=== PATIENT | male | born 1995 | race African-American/Black ===

== ENCOUNTER 2020-06-19 17:05 | Emergency (ER) | payer OTHER, SELFPAY ==
--- NOTE | 2020-06-19 | CT_ITS ---
EXAMINATION: CT ABDOMEN AND PELVIS WITH CONTRAST CLINICAL INFORMATION: Left upper quadrant pain. COMPARISON: None. TECHNIQUE: Contiguous axial thin section helical images of the abdomen and pelvis were performed following the administration of 85 mL of intravenous Omnipaque 350. The data set was reformatted in the coronal and sagittal planes and reviewed on an independent workstation. DLP: 482 mGy-cm. FINDINGS: The visualized lung bases are clear. The visualized portions of the heart are unremarkable. The liver is of normal size and attenuation without focal lesions nor intrahepatic biliary ductal dilation. A normal gallbladder is identified. There is no wall thickening or discernible pericholecystic fluid. The spleen, pancreas, adrenal glands are unremarkable. Both kidneys are of normal size and attenuation without hydronephrosis or nephrolithiasis. Following the administration of IV contrast, prompt symmetric nephrograms are displayed. There is no abdominal free fluid. There is neither mesenteric nor retroperitoneal lymphadenopathy. Normal unopacified loops of small and large bowel are identified. A normal appendix is identified. There is no pelvic free fluid. The urinary bladder is unremarkable. There is neither pelvic nor inguinal lymphadenopathy. Bone windows: Neither sclerotic nor lytic bone lesions are identified. IMPRESSION: No evidence for acute abdominal or pelvic inflammatory or infectious processes. Automated exposure control (Care Dose) Adjustment of the mA and/or kv according to patient size (this includes techniques or standardized protocols for targeted exams where dose is matched to indication / reason for exam; i.e. extremities or head).
[2020-06-19 20:04] VITALS: BP 144/72; PULSE 90; RESP 16; TEMP 36.1; O2SAT 98; BMI 26.6
[2020-06-19 21:09] VITALS: BP 129/78; PULSE 82; RESP 20; TEMP 37.4; O2SAT 98
--- NOTE | 2020-06-19 21:28 | ED_ITS ---
HPI - Abdominal Pain General Chief Complaint: Abdominal Pain Stated Complaint: BLOOD IN STOOL Time Seen by Provider: 06/19/20 21:00 History of Present Illness HPI narrative: This is a 24-year-old male without significant past medical history who presents with 1 week of persistent epigastric/left upper quadrant abdominal discomfort that is achy/ crampy in nature and worsens with eating. This is not been associated with any fevers, chills, nausea, vomiting, recent travel, exposure to toddlers, medications. However, patient states that he has been having 5-6 soft stools a day. He endorses a remote history of questionable colitis, has never been diagnosed with acid reflux /ulcers. In addition, patient states that he is lactose intolerant and had eaten lactose approximately 1 week ago prior to the onset of his symptoms. Related Data Allergies Allergy/AdvReac Type Severity Reaction Status Date / Time No Known Allergies Allergy Unverified 06/04/20 19:26 [No Known Allergies*] Review of Systems Review of Systems Pertinent positives and negatives as stated in HPI 10 point review of systems is otherwise negative. Physical Exam Vital Signs and I&O and Narrative: Vital Signs and I&O: Vital Signs Temp 99.2 F 06/20/20 00:06 Pulse 72 06/20/20 00:06 Resp 14 06/20/20 00:06 BP 125/76 06/20/20 00:06 Pulse Ox 98 06/20/20 00:06 Intake & Output 06/19/20 06/20/20 06/20/20 18:59 06:59 18:59 Intake Total 1000 / 1000 Balance 1000 / 1000 Weight 79.379 kg Intake: Intake, IV Amoun t 1000 / 1000 0.9 % Sodium C hloride 1,000 ml 1000 / 1000 @ 999 mls/hr I VCONT .Q1H1M [facility] Rx#:[id number] Body Mass Index 26.6 VITAL SIGNS: Reviewed. GENERAL: Well developed, well nourished, in no acute distress. HEAD: Normocephalic/atraumatic, EYES: PERRLA, EOMI intact without pain, no nystagmus/pallor/icterus noted EARS: Ext canals without abnormality, TMs non-bulging and non-erythematous NOSE: Nares patent bilateral OROPHARYNX: no oral lesions noted, posterior pharynx clear and non-erythematous without noted tonsillar enlargement/erythema/exudates NECK: Supple, no adenopathy LUNGS: Normal breath sounds. No adventitious sounds or accessory muscle use. SpO2<> CARDIOVASCULAR: Regular rate and rhythm without noted murmurs, no JVD or lower extremity edema. ABDOMEN: Soft, non-tender, non-distended with bowel sounds. No rigidity. No guarding. No palpable masses or hernias noted MUSCULOSKELETAL: No tenderness, deformities, or effusions noted on gross inspection. EXTREMITIES: No cyanosis, clubbing or edema. SKIN: Inspection of the skin reveals no rashes, ulcerations, jaundice, pallor, or petechiae. NEUROLOGIC: Alert and oriented x 4. Strength and sensation to light touch were grossly intact Course Reevaluation(s) Reevaluation #1: review of all lab work, urinalysis, imaging negative for any acute findings other than a mildly elevated lipase value which may suggest a mild pancreatitis, however on review the CT scan there is no report of a pancreatitis. All results and findings were discussed with the patient at bedside and he is stable for discharge and strongly recommended to follow-up with his primary care provider to discuss further outpatient evaluation. In addition, he was encouraged to start an [id number] antacid. MDM - Abdominal Pain MDM Narrative Medical decision making narrative: This is a 24-year-old male with history and clinical presentation most consistent with possible gastritis versus gastroenteritis and less likely pancreatitis or colitis given the absence of fevers. Medical Records Attestation: I reviewed the patient's medical records. Lab Data Attestation: I reviewed the patient's lab results. Result diagrams: 06/19/20 21:55 06/19/20 21:54 Labs: Lab Results 06/19/20 06/19/20 06/19/20 Range/Units 21:54 21:55 21:55 WBC 11.0 H (4.8-10.8) X10*3/uL RBC 4.59 L (4.60-5.80) X10*6/uL Hgb 13.7 L (14.0-18.0) g/dl Hct 41.7 L (42-52) % MCV 90.8 (80-98) fL MCH 29.8 (27.0-33.0) pg MCHC 32.9 (31.0-36.0) g/dl RDW 13.0 (11.0-16.0) % Plt Count 302 (160-400) X10*3/uL MPV 9.4 (9.4-12.4) fL Immature Gran % (Auto) 0.5 H (0.0-0.4) % Neut % (Auto) 76.8 H (45-73) % Lymph % (Auto) 11.6 L (20-40) % [place] % (Auto) 9.9 (2-11) % Eos % (Auto) 0.8 (0-4) % Baso % (Auto) 0.4 (0-2) % Neut # (Auto) 8.4 H (2.0-8.3) X10*3/uL Lymph # (Auto) 1.3 (1.2-4.9) X10*3/uL [place] # (Auto) 1.1 (0.1-1.2) X10*3/uL Eos # (Auto) 0.1 (0.0-0.4) X10*3/uL Baso # (Auto) 0.0 (0.0-0.2) X10*3/uL Abs Immat Gran (auto) 0.06 H (0.00-0.03) X10*3/uL Absolute Nucleated RBC 0.000 (0.0-0.012) X10*3/uL Nucleated RBC % (auto) 0.0 (0.0-0.2) /100WBC Sodium 140 (135-145) mmol/L Potassium 4.1 (3.3-5.1) mmol/l Chloride 104 (96-108) mmol/L Carbon Dioxide 28 (22-29) mmol/L Anion Gap 12 (12-20) BUN 7 L (9-16) mg/dL Creatinine 1.01 (0.5-1.4) mg/dL Estim Creat Clear Calc 108.1 Estimated GFR > 60 Random Glucose 76 (60-115) mg/dL Calcium 8.3 L (8.4-10.2) mg/dL Total Bilirubin 0.3 (0.0-1.0) mg/dL AST 15 (5-37) U/L ALT 14 (0-40) U/L Alkaline Phosphatase 59 (39-117) U/L Total Protein 7.0 (6.5-8.0) g/dL Albumin 3.8 (3.5-5.0) g/dL Lipase 213 H (8-78) U/L Urine Color YELLOW Urine Appearance CLEAR Urine pH 5.5 (5.0-8.0) Ur Specific [place] >= 1.030 H (1.005-1.025) Urine Protein NEG (NEG-TRACE) MG/DL Urine Glucose (UA) NEG (NEG) MG/DL Urine Ketones NEG (NEG) MG/DL Urine Blood NEG (NEG) Urine Nitrite NEG (NEG) Ur Leukocyte Esterase NEG (NEG) Discharge Plan Discharge Clinical Impression: Pancreatitis Qualifiers: Chronicity: acute Pancreatitis type: unspecified pancreatitis type Acute pancreatitis complication: no infection or necrosis Qualified Code(s): K85.90 - Acute pancreatitis without necrosis or infection, unspecified Patient Disposition: Home, Self-Care Instructions: Pancreatitis (ED) Additional Instructions: 1. increase oral hydration, especially water. 2. avoid alcohol Referrals: Neftali Villanueva MD [Primary Care Provider] - 2 days ( mild, acute pancreatitis) Interventions: ED Discharge Assessment Last Done: 06/20/20 01:28 Discharge Date/Time: 06/20/20 01:29 [facility] Past Medical History Medical History Colitis Social History Social History (Updated 06/19/20 @ 21:41 by Ayde Dolan MD) Alcohol intake: current Alcohol intake frequency: 3 or more drinks per day Alcohol type: wine and hard liquor Smoking Status: Light tobacco smoker Use of substances other than those prescribed or required for medical reasons: Yes Substance Use Type: Marijuana Substance Use Frequency: Weekly Last Used Substance: Days (ago) Any prior treatment program specific to substance use: No Advance Directives: No Advance Directives Information Provided: Yes
--- NOTE | 2020-06-19 21:33 | PC.NURSE ---
pt states he feels relieved after he has a bowel movement. tender on palpation to the left side mid line
[2020-06-19 22:02] LABS: MANUAL DIFF FLAG NO
[2020-06-19 22:03] LABS: Basophils Percent Auto 0.4 % (0-2); Eosinophils Absolute Auto 0.1 X10*3/uL (0.0-0.4); Eosinophils Percent Auto 0.8 % (0-4); Hematocrit 41.7 % (42-52); Hemoglobin 13.7 g/dl (14.0-18.0); Imm Gran Abs Auto 0.06 X10*3/uL (0.00-0.03); Imm Gran Pct Auto 0.5 % (0.0-0.4); Lymphocytes Absolute Auto 1.3 X10*3/uL (1.2-4.9); Lymphocytes Percent Auto 11.6 % (20-40); Mean Corpuscular HGB Conc 32.9 g/dl (31.0-36.0); Mean Corpuscular Hemoglobin 29.8 pg (27.0-33.0); Mean Corpuscular Volume 90.8 fL (80-98); Mean Platelet Volume 9.4 fL (9.4-12.4); Monocytes Absolute Auto 1.1 X10*3/uL (0.1-1.2); Monocytes Percent Auto 9.9 % (2-11); Neutrophils Absolute Auto 8.4 X10*3/uL (2.0-8.3); Neutrophils Percent Auto 76.8 % (45-73); Platelet Count 302 X10*3/uL (160-400); Red Blood Count 4.59 X10*6/uL (4.60-5.80)
[2020-06-19 22:14] LABS: Glucose Urine UA NEG (NEG); Leukocyte Esterase Urine NEG (NEG); Nitrite Urine NEG (NEG); PH 5.5 (5.0-8.0); Specific Gravity - Urine >= 1.030 (1.005-1.025); Urine Blood NEG (NEG); Urine Ketones NEG (NEG); Urine Protein NEG (NEG-TRACE)
[2020-06-19 22:15] LABS: Appearance Urine CLEAR; Color Urine YELLOW
--- NOTE | 2020-06-19 22:21 | PC.NURSE ---
poison controll called and monitor pt till awake able to walk and eat and drink. recommented to draw a sallicyate level. provider made aware.
[2020-06-19 22:38] LABS: Alanine Aminotransferase 14 U/L (0-40); Albumin Level 3.8 g/dL (3.5-5.0); Alkaline Phosphatase 59 U/L (39-117); Anion Gap 12 (12-20); Aspartate Amino Transferase 15 U/L (5-37); Bilirubin Total 0.3 mg/dL (0.0-1.0); Blood Urea Nitrogen 7 mg/dL (9-16); Calcium 8.3 mg/dL (8.4-10.2); Carbon Dioxide 28 mmol/L (22-29); Chloride 104 mmol/L (96-108); Creatinine Clr Calc Pharmacy 108.1; Estimated Glomerular Filt Rate > 60; Glucose Random 76 mg/dL (60-115); Lipase 213 U/L (8-78); Potassium 4.1 mmol/l (3.3-5.1); Sodium 140 mmol/L (135-145)
[2020-06-19] MEDS: iohexoL 350 MG/ML 100 ML INFUS..BTL 85 ML IV (23:40)
[2020-06-20 00:06] VITALS: BP 125/76; PULSE 72; RESP 14; TEMP 37.3; O2SAT 98
[2020-06-20] MEDS: 0.9 % Sodium Chloride 1,000 ML 999 ML IVCONT (00:12)
== END 2020-06-20 01:29 | disposition home or self-care (01) ==
PROVIDERS: Emergency Provider Student in an Organized Health Care Education/Training Program; PCP Internal Medicine
DX: K85.90 Acute pancreatitis without necrosis or infection, unspecified (principal); F17.219 Nicotine dependence, cigarettes, with unspecified nicotine-induced disorders
CPT/HCPCS: 36415; 74177; 80053; 81003; 83690; 85025; 96360; 99284

== ENCOUNTER 2020-06-25 17:15 | Emergency (ER) | payer OTHER, SELFPAY ==
[2020-06-25 17:28] VITALS: BP 112/83; PULSE 66; RESP 18; TEMP 35.8; O2SAT 99; BMI 26.4
--- NOTE | 2020-06-25 18:42 | ED_ITS ---
HPI - Abdominal Pain General Chief Complaint: Abdominal Pain Stated Complaint: Abdominal pain Time Seen by Provider: 06/25/20 18:09 Source: patient History of Present Illness HPI narrative: 24-year-old male state went to primary care doctor yesterday which advised to come to the emergency department if it continues to have abdominal pain. Was seen here couple days ago for the same. Since then has been having upper abdominal pain with worsening about an hour after he eats. Positive nausea however no vomiting. Patient states he did see a little bit of blood on his stool however no dizziness or syncope MD elicited complaint: abdominal pain Pain Consistency: constant Location: epigastric Severity: moderate Radiation: none Related Data Allergies Allergy/AdvReac Type Severity Reaction Status Date / Time No Known Allergies Allergy Unverified 06/04/20 19:26 [No Known Allergies*] Review of Systems Comments: Constitutional : No Weight loss, No Fever, No Chills, No Night Sweats, No Fatigue, No Malaise ENT/Mouth : No Hearing loss, No Ear Pain, No Nasal Congestion, No Sinus Pain, No Hoarseness, No sore throat, No Rhinorrhea, No Swallowing Difficulty Eyes: No Eye Pain, No Swelling, No Redness, No Foreign Body, No Discharge, No Vision Changes Cardiovascular : No Chest Pain, No SOB, No Dyspnea on Exertion, No Orthopnea, No Edema, No Palpitations Respiratory : No Cough, No Sputum, No Wheezing, No Smoke Exposure, No Dyspnea Gastrointestinal : positive Nausea, No Vomiting, No Diarrhea, No Constipation, positive abdominal Pain, positiveHematochezia, No Melena Genitourinary : no irregular bleeding, No Dysuria, No Urinary Frequency, No Hematuria, No Urinary Incontinence, No Urgency, No Flank Pain, No Urinary Flow Changes, No Hesitancy Musculoskeletal : No joint pain, No Myalgias, No Joint Swelling Skin : No Skin Lesions, No rash Neuro : No Weakness, No Numbness, No Paresthesias, No Loss of Consciousness, No Dizziness, No Headache Psych : No Anxiety/Panic, No Depression, No SI/HI/AH/VH, No Social Issues, Heme/Lymph: No Bruising, No Bleeding,No Lymphadenopathy Endocrine : No Polyuria, No Polydipsia, No Temperature Intolerance Physical Exam Vital Signs and I&O and Narrative: Vital Signs and I&O: Vital Signs Temp 96.4 F L 06/25/20 17:28 Pulse 66 06/25/20 17:28 Resp 18 06/25/20 17:28 BP 112/83 06/25/20 17:28 Pulse Ox 99 06/25/20 17:28 Intake & Output 06/24/20 06/25/20 06/25/20 18:59 06:59 18:59 Weight 78.925 kg Body Mass Index 26.4 vital signs reviewed Const: Other: Appearance: Alert. Oriented X3. No acute distress. Eyes: Pupils equal, round and reactive to light. ENT: Pharynx normal. Neck: Normal inspection. Neck supple. No lymph nodes noted. No crepitus CVS: Normal heart rate and rhythm. Pulses normal. Normal S1 and S2 Respiratory: No respiratory distress. Breath sounds normal. No Wheezing. No rales Abdomen: Soft and nontender. No rigidity. No distention. good BS x4 Skin: Skin warm and dry. Normal skin color. Normal skin turgor. Extremities: No lower extremity edema. No lower extremity edema. No Lacerations. No Rash Neuro: Oriented X 3. No motor deficit. No sensory deficit. Moving all extermities. No slurred speech. [facility] Past Medical History Attestation statement: The following information was validated with the patient. Medical History (Updated 06/25/20 @ 18:44 by Marlon Babcock DO) Colitis Pancreatitis Patient denies medical problems Social History Social History Alcohol intake: unknown Smoking Status: Never smoker Smoked in Last 30 Days: No Use of substances other than those prescribed or required for medical reasons: No Substance Use Type: Marijuana Advance Directives: No Advance Directives Information Provided: No
[2020-06-25 18:54] LABS: MANUAL DIFF FLAG NO
[2020-06-25 18:55] LABS: Basophils Percent Auto 0.3 % (0-2); Eosinophils Absolute Auto 0.1 X10*3/uL (0.0-0.4); Eosinophils Percent Auto 1.4 % (0-4); Hematocrit 42.3 % (42-52); Hemoglobin 14.3 g/dl (14.0-18.0); Imm Gran Abs Auto 0.05 X10*3/uL (0.00-0.03); Imm Gran Pct Auto 0.5 % (0.0-0.4); Lymphocytes Absolute Auto 1.4 X10*3/uL (1.2-4.9); Lymphocytes Percent Auto 13.7 % (20-40); Mean Corpuscular HGB Conc 33.8 g/dl (31.0-36.0); Mean Corpuscular Hemoglobin 29.9 pg (27.0-33.0); Mean Corpuscular Volume 88.3 fL (80-98); Mean Platelet Volume 8.7 fL (9.4-12.4); Monocytes Absolute Auto 0.9 X10*3/uL (0.1-1.2); Neutrophils Absolute Auto 7.7 X10*3/uL (2.0-8.3); Neutrophils Percent Auto 75.1 % (45-73); Platelet Count 362 X10*3/uL (160-400); Red Blood Count 4.79 X10*6/uL (4.60-5.80); Red Cell Distribution Width 12.2 % (11.0-16.0); White Blood Count 10.2 X10*3/uL (4.8-10.8)
[2020-06-25] MEDS: 0.9 % Sodium Chloride 1,000 ML 999 ML IVCONT (18:58)
[2020-06-25] MEDS: Lidocaine HCl Viscous 2 % 15 ML SOLUTION MUCOUS MEM (18:58)
[2020-06-25] MEDS: PHENobarb/Hyoscy/Atropine/Scop 10 ML ELIXIR PO (18:58)
[2020-06-25] MEDS: Magnesium Hydrox/Alum Hydrox 30 ML ORAL.SUSP PO (18:58)
[2020-06-25] MEDS: Famotidine/PF 20 MG/2 ML VIAL IVPUSH (18:58)
[2020-06-25 19:34] LABS: Alanine Aminotransferase 10 U/L (0-40); Albumin Level 3.9 g/dL (3.5-5.0); Alkaline Phosphatase 60 U/L (39-117); Anion Gap 13 (12-20); Aspartate Amino Transferase 16 U/L (5-37); Bilirubin Direct 0.2 mg/dL (0.0-0.5); Bilirubin Total 0.6 mg/dL (0.0-1.0); Blood Urea Nitrogen 7 mg/dL (9-16); Calcium 8.5 mg/dL (8.4-10.2); Carbon Dioxide 28 mmol/L (22-29); Chloride 100 mmol/L (96-108); Creatinine Clr Calc Pharmacy 102.1; Estimated Glomerular Filt Rate > 60; Glucose Random 71 mg/dL (60-115); Potassium 4.2 mmol/l (3.3-5.1); Sodium 137 mmol/L (135-145); Total Protein 7.4 g/dL (6.5-8.0)
[2020-06-25 19:45] LABS: Lipase 249 U/L (8-78)
--- NOTE | 2020-06-25 20:06 | ED.ABDPAIN ---
HPI - Abdominal Pain General Chief Complaint: Abdominal Pain Stated Complaint: Abdominal pain Time Seen by Provider: 06/25/20 18:09 Source: patient History of Present Illness HPI narrative: Pt states of upper abd pain x several days. seen here, then PMD and continued pain. +nausea, no vomiting, no fevers, no chills. Mid upper sharp, non radaiting. no syncnope no cp MD elicited complaint: abdominal pain Severity: moderate Relieving factors: nothing Related Data Previous Rx's Medication Instructions Recorded famotidine [Pepcid] 40 mg PO DAILY #20 tab 06/25/20 ondansetron 4 mg PO BEDTIME PRN 5 Days #20 tab 06/25/20 tramadol [Ultram] 50 mg PO BID PRN #7 tab 06/25/20 Allergies Allergy/AdvReac Type Severity Reaction Status Date / Time No Known Allergies Allergy Unverified 06/04/20 19:26 [No Known Allergies*] Review of Systems Comments: Constitutional : No Weight loss, No Fever, No Chills, No Night Sweats, No Fatigue, No Malaise ENT/Mouth : No Hearing loss, No Ear Pain, No Nasal Congestion, No Sinus Pain, No Hoarseness, No sore throat, No Rhinorrhea, No Swallowing Difficulty Eyes: No Eye Pain, No Swelling, No Redness, No Foreign Body, No Discharge, No Vision Changes Cardiovascular : No Chest Pain, No SOB, No Dyspnea on Exertion, No Orthopnea, No Edema, No Palpitations Respiratory : No Cough, No Sputum, No Wheezing, No Smoke Exposure, No Dyspnea Gastrointestinal : Positive Nausea, Positive Vomiting, positive Diarrhea, positive abdominal Pain, No Hematochezia, No Melena Genitourinary : no irregular bleeding, No Dysuria, No Urinary Frequency, No Hematuria, No Urinary Incontinence, No Urgency, No Flank Pain, No Urinary Flow Changes, No Hesitancy Musculoskeletal : No joint pain, No Myalgias, No Joint Swelling Skin : No Skin Lesions, No rash Neuro : No Weakness, No Numbness, No Paresthesias, No Loss of Consciousness, No Dizziness, No Headache Psych : No Anxiety/Panic, No Depression, No SI/HI/AH/VH, No Social Issues, Heme/Lymph: No Bruising, No Bleeding,No Lymphadenopathy Endocrine : No Polyuria, No Polydipsia, No Temperature Intolerance Physical Exam Vital Signs and I&O and Narrative: Vital Signs and I&O: Vital Signs Temp 96.4 F L 06/25/20 17:28 Pulse 66 06/25/20 17:28 Resp 16 06/25/20 20:27 BP 112/83 06/25/20 17:28 Pulse Ox 99 06/25/20 17:28 Intake & Output 06/26/20 06/26/20 06/27/20 06:59 18:59 06:59 Intake Total 1000 / 1000 Balance 1000 / 1000 Intake: Intake, IV Amoun t 1000 / 1000 0.9 % Sodium C hloride 1,000 ml 1000 / 1000 @ 999 mls/hr I VCONT .Q1H1M [facility] Rx#:[id number] Body Mass Index 26.4 Const: Other: Appearance: Alert. Oriented X3. No acute distress. Eyes: Pupils equal, round and reactive to light. ENT: Pharynx normal. Neck: Normal inspection. Neck supple. No lymph nodes noted. No crepitus CVS: Normal heart rate and rhythm. Pulses normal. Normal S1 and S2 Respiratory: No respiratory distress. Breath sounds normal. No Wheezing. No rales Abdomen: Soft and tender to left upper . No rigidity. No distention. good BS x4 Skin: Skin warm and dry. Normal skin color. Normal skin turgor. Extremities: No lower extremity edema. No lower extremity edema. No Lacerations. No Rash Neuro: Oriented X 3. No motor deficit. No sensory deficit. Moving all extermities. No slurred speech. Course Course Course Narrative: improved with GI cocktail and IV pepcid. tolerating PO intake. Non toxic and repeat abd exam without peritonitis. d/w pt ddx pancreatitis vs. ulcer pt describes pain 1 hour after eating no rectal bleeding in Ed MDM - Abdominal Pain Lab Data Result diagrams: 06/25/20 18:49 06/25/20 18:49 Labs: Lab Results 06/25/20 06/25/20 Range/Units 18:49 18:49 WBC 10.2 (4.8-10.8) X10*3/uL RBC 4.79 (4.60-5.80) X10*6/uL Hgb 14.3 (14.0-18.0) g/dl Hct 42.3 (42-52) % MCV 88.3 (80-98) fL MCH 29.9 (27.0-33.0) pg MCHC 33.8 (31.0-36.0) g/dl RDW 12.2 (11.0-16.0) % Plt Count 362 (160-400) X10*3/uL MPV 8.7 L (9.4-12.4) fL Immature Gran % (Auto) 0.5 H (0.0-0.4) % Neut % (Auto) 75.1 H (45-73) % Lymph % (Auto) 13.7 L (20-40) % [place] % (Auto) 9.0 (2-11) % Eos % (Auto) 1.4 (0-4) % Baso % (Auto) 0.3 (0-2) % Lymph # (Auto) 1.4 (1.2-4.9) X10*3/uL [place] # (Auto) 0.9 (0.1-1.2) X10*3/uL Eos # (Auto) 0.1 (0.0-0.4) X10*3/uL Baso # (Auto) 0.0 (0.0-0.2) X10*3/uL Abs Immat Gran (auto) 0.05 H (0.00-0.03) X10*3/uL Absolute Neuts (auto) 7.7 (2.0-8.3) X10*3/uL Absolute Nucleated RBC 0.000 (0.0-0.012) X10*3/uL Nucleated RBC % (auto) 0.0 (0.0-0.2) /100WBC Sodium 137 (135-145) mmol/L Potassium 4.2 (3.3-5.1) mmol/l Chloride 100 (96-108) mmol/L Carbon Dioxide 28 (22-29) mmol/L Anion Gap 13 (12-20) BUN 7 L (9-16) mg/dL Creatinine 1.07 (0.5-1.4) mg/dL Estim Creat Clear Calc 102.1 Estimated GFR > 60 Random Glucose 71 (60-115) mg/dL Calcium 8.5 (8.4-10.2) mg/dL Total Bilirubin 0.6 (0.0-1.0) mg/dL Direct Bilirubin 0.2 (0.0-0.5) mg/dL AST 16 (5-37) U/L ALT 10 (0-40) U/L Alkaline Phosphatase 60 (39-117) U/L Total Protein 7.4 (6.5-8.0) g/dL Albumin 3.9 (3.5-5.0) g/dL Lipase 249 H (8-78) U/L Discharge Plan Discharge Clinical Impression: Abdominal pain, Elevated lipase Patient Disposition: Home, Self-Care Instructions: Abdominal Pain (ED) Additional Instructions: Thank you for visiting the emergency department today. If your symptoms worsen or do not resolve completely please return to the emergency department immediately or call 911. if he have any questions please call your primary care physician Prescriptions: New tramadol [Ultram] 50 mg tablet 50 mg PO BID PRN (Reason: pain) Qty: 7 RF: 0 famotidine [Pepcid] 40 mg tablet 40 mg PO DAILY Qty: 20 RF: 0 ondansetron 4 mg tablet,disintegrating 4 mg PO BEDTIME PRN (Reason: nausea and vomiting) 5 Days Qty: 20 RF: 0 Interventions: ED Discharge Assessment Last Done: 06/25/20 20:28 Discharge Date/Time: 06/25/20 20:28 [facility] Past Medical History Medical History Colitis Pancreatitis Patient denies medical problems Family History Family History (Updated 06/26/20 @ 20:51 by Marlon Babcock DO) Other Family history normal Social History Social History Alcohol intake: unknown Smoking Status: Never smoker Smoked in Last 30 Days: No Use of substances other than those prescribed or required for medical reasons: No Substance Use Type: Marijuana Advance Directives: No Advance Directives Information Provided: No
[2020-06-25 20:27] VITALS: RESP 16
== END 2020-06-25 20:28 | disposition home or self-care (01) ==
PROVIDERS: Emergency Provider Emergency Medicine; PCP Internal Medicine
DX: R10.12 Left upper quadrant pain (principal); R74.8 Abnormal levels of other serum enzymes; Z79.899 Other long term (current) drug therapy
CPT/HCPCS: 36415; 80048; 80076; 83690; 85025; 96361; 96374; 99284

== ENCOUNTER 2022-04-03 01:46 | Emergency (ER) | payer MEDICAID, SELFPAY ==
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
[2022-04-03 02:11] VITALS: BP 141/87; PULSE 100; RESP 20; TEMP 36.5; O2SAT 98; BMI 26.6
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
== END 2022-04-03 06:03 | disposition home or self-care (01) ==
PROVIDERS: Emergency Provider Emergency Medicine
DX: S01.511A Laceration without foreign body of lip, initial encounter (principal); M54.2 Cervicalgia; R51.9 Headache, unspecified; Y04.2XXA Assault by strike against or bumped into by another person, initial encounter; Y93.9 Activity, unspecified; Y92.9 Unspecified place or not applicable; Y99.9 Unspecified external cause status; Z79.899 Other long term (current) drug therapy
CPT/HCPCS: 12011; 70450; 70486; 72125; 99284

== ENCOUNTER 2022-04-10 19:01 | Emergency (ER) | payer MEDICAID, SELFPAY ==
[2022-04-10 19:31] VITALS: BP 124/85; PULSE 93; RESP 18; TEMP 36.8; O2SAT 98; BMI 27.0
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
== END 2022-04-10 22:59 | disposition home or self-care (01) ==
PROVIDERS: Emergency Provider Internal Medicine
DX: Z48.02 Encounter for removal of sutures (principal)
CPT/HCPCS: 99282

== ENCOUNTER → 2022-04-28 13:39 | Outpatient (BNVA) | payer MEDICAID, SELFPAY | PROVIDERS: Visit Provider Surgery | DX: L05.91 Pilonidal cyst without abscess (principal) | CPT/HCPCS: 99202 ==

== ENCOUNTER 2022-05-10 09:20 | Day surgery (SDC) | payer MEDICAID, SELFPAY ==
[2022-05-04 14:11] VITALS: BMI 28.1
[2022-05-10] VITALS (8 sets, daily range): BP systolic 111–150; BP diastolic 54–79; PULSE 57–97; RESP 16–18; TEMP 36.8–37.1; O2SAT 97–100; BMI 27.3
[2022-05-10] MEDS: Lactated Ringers 1,000 ML 50 ML IVCONT (09:47)
--- NOTE | 2022-05-10 10:27 | MHC.SHP ---
Pre-Procedural Eval Section A Date of Service: 05/10/22 The patient is an INPATIENT: No Changes since office visit: No Cold of Flu in the past 2 weeks, No New Medical Problems, No Changes in Medication and No Patient answered all questions The History & Physical has been completed within 30 days and I have reviewed it.: Yes Section B Chief Complaint: pilonidal cyst Allergies: Allergies Allergy/AdvReac Type Severity Reaction Status Date / Time No Known Allergies Allergy Verified 04/28/22 14:00 [No Known Allergies*] Plan I have reviewed the history and physical and performed a pertinent physical examination on my patient. No changes have occurred unless specified.
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
--- NOTE | 2022-05-10 12:05 | P.OP_ITS ---
Operative Note Operative Note Date of Service: 05/10/22 Narrative: Preop diagnosis: Pilonidal cyst, sacrococcygeal area Postop diagnosis: The same Procedure: Excision of pilonidal cyst, sacrococcygeal area Surgeon: Nikolay Denton MD addictions counselor assistant: OBI Gonzalez The patient is a 26-year-old male with recurrent pain, swelling, and drainage from the sacrococcygeal area for over 10 years. Examination in the office revealed a large induration and this area with a sinus and midline pits. She understood the technique of excision under anesthesia. He was aware of the risks, benefits, and alternatives He was brought to the operating room. He was placed in prone position. Was under general anesthesia via endotracheal tube. The sacrococcygeal was prepped and draped in the usual sterile fashion. A surgical time-out was done. The patient received cefazolin 2 g IV preoperatively I marked the planned line of incision to include all the this as well as the midline clips and the entire induration. This planned line of incision was infiltrated with lidocaine 1%. I made the incision using blade 15. And this was carried down through the full-thickness of the skin down to the subcutaneous layer. I used electrocautery to divide through the thick subcutaneous fat excise the entire indurated area. The excised area was 8 cm x 4 cm and 3 cm deep. I used electrocautery to achieve hemostasis on the subcutaneous layer. I then irrigated copiously. Once hemostasis was achieved, I proceeded to undermine thick subcutaneous fat to allow closure without tension. I reapposed the thick subcutaneous fat with nipple Polysorb 3-0 sutures. The skin was then closed with vertical mattress 2- 0 sutures alternating with simple interrupted sutures. I infiltrated the area with Marcaine 0.5% for postop analgesia. Dressings were applied. The procedure was completed. The patient tolerated procedure well. There were no complications noted. Initial and final counts of sponges and instruments were correct. Estimated blood loss about 30 cc The patient was extubated without difficulty and transferred to the recovery room with stable vital signs.
== END 2022-05-10 14:12 | disposition home or self-care (01) ==
PROVIDERS: Visit Provider Surgery
PROC: (CPT 11771; principal; 2022-05-10 11:30)
DX: L05.91 Pilonidal cyst without abscess (principal); K52.9 Noninfective gastroenteritis and colitis, unspecified; K85.90 Acute pancreatitis without necrosis or infection, unspecified; F10.20 Alcohol dependence, uncomplicated; F12.90 Cannabis use, unspecified, uncomplicated
CPT/HCPCS: 11771; 88304; J0330; J0690; J1100; J1885; J2250; J2405; J2795; J3010

== ENCOUNTER → 2022-06-07 15:56 | Outpatient (BNVA) | payer MEDICAID, SELFPAY | PROVIDERS: PCP Family Medicine; Referring Provider Family Medicine; Visit Provider Nurse Practitioner | DX: K92.1 Melena (principal); R19.7 Diarrhea, unspecified; K64.9 Unspecified hemorrhoids; Z80.0 Family history of malignant neoplasm of digestive organs | CPT/HCPCS: 99202 ==

== ENCOUNTER 2022-07-06 13:46 | Outpatient (REF) | payer MEDICAID, SELFPAY ==
[2022-07-06 14:06] LABS: MANUAL DIFF FLAG NO
[2022-07-06 14:41] LABS: Basophils Percent Auto 0.3 % (0-2); Eosinophils Absolute Auto 0.1 X10*3/uL (0.0-0.4); Eosinophils Percent Auto 0.8 % (0-4); Hemoglobin 9.7 g/dl (14.0-18.0); Imm Gran Abs Auto 0.03 X10*3/uL (0.00-0.03); Imm Gran Pct Auto 0.3 % (0.0-0.4); Lymphocytes Absolute Auto 2.2 X10*3/uL (1.2-4.9); Lymphocytes Percent Auto 21.3 % (20-40); Mean Corpuscular HGB Conc 30.3 g/dl (31.0-36.0); Mean Corpuscular Hemoglobin 22.3 pg (27.0-33.0); Mean Corpuscular Volume 73.6 fL (80.0-98.0); Mean Platelet Volume 9.5 fL (9.4-12.4); Monocytes Absolute Auto 1.2 X10*3/uL (0.1-1.2); Monocytes Percent Auto 11.2 % (2-11); Neutrophils Absolute Auto 6.9 x10*3/uL (2.0-8.3); Neutrophils Percent Auto 66.1 % (45-73); Platelet Count 435 X10*3/uL (160-400); Red Blood Count 4.35 X10*6/uL (4.60-5.80); Red Cell Distribution Width 23.8 % (11.0-16.0); White Blood Count 10.5 X10*3/uL (4.8-10.8)
[2022-07-06 15:15] LABS: Alanine Aminotransferase 30 U/L (0-40); Albumin Level 3.9 g/dL (3.5-5.0); Alkaline Phosphatase 63 U/L (39-117); Anion Gap 14 (12-20); Aspartate Amino Transferase 26 U/L (5-37); Bilirubin Total 0.2 mg/dL (0.0-1.0); Blood Urea Nitrogen 18 mg/dL (9-16); C Reactive Protein 1.08 mg/dL (< or = 0.50); Calcium 8.8 mg/dL (8.4-10.2); Carbon Dioxide 24 mmol/L (22-29); Chloride 103 mmol/L (96-108); Estimated Glomerular Filt Rate > 60; Glucose Random 81 mg/dL (60-115); Potassium 4.4 mmol/L (3.3-5.1); Sodium 137 mmol/L (135-145); Total Protein 7.9 g/dL (6.5-8.0)
[2022-07-08 12:57] LABS: Transglutaminase Ab IgG <1.0 U/mL; Transglutaminase IgA <1.0 U/mL
== END 2022-07-06 13:47 | disposition home or self-care (01) ==
LOC: HO.LAB 13:46
PROVIDERS: PCP Nurse Practitioner Primary Care; Visit Provider Nurse Practitioner
DX: Z01.818 Encounter for other preprocedural examination (principal); K92.1 Melena; Z80.0 Family history of malignant neoplasm of digestive organs
CPT/HCPCS: 36415; 80053; 85025; 86140; 86364

== ENCOUNTER 2024-06-25 12:46 | Outpatient (REF) | payer MEDICAID, SELFPAY ==
[2024-06-25 16:31] LABS: Basophils Absolute Auto 0.1 X10*3/uL (0.0-0.2); Basophils Percent Auto 0.6 % (0-2); Eosinophils Absolute Auto 0.3 X10*3/uL (0.0-0.4); Eosinophils Percent Auto 3.4 % (0-4); Hematocrit 27.1 % (42.0-52.0); Hemoglobin 7.2 g/dl (14.0-18.0); Imm Gran Abs Auto 0.06 X10*3/uL (0.00-0.03); Imm Gran Pct Auto 0.6 % (0.0-0.4); Lymphocytes Absolute Auto 1.9 X10*3/uL (1.2-4.9); Lymphocytes Percent Auto 19.6 % (20-40); MANUAL DIFF FLAG SCAN; Mean Corpuscular HGB Conc 26.6 g/dl (31.0-36.0); Mean Corpuscular Hemoglobin 15.9 pg (27.0-33.0); Mean Platelet Volume 8.9 fL (9.4-12.4); Monocytes Absolute Auto 1.5 X10*3/uL (0.1-1.2); Monocytes Percent Auto 15.8 % (2-11); NRBC Pct Auto 0.3 /100WBC (0.0-0.2); Neutrophils Absolute Auto 5.7 x10*3/uL (2.0-8.3); Platelet Count 620 X10*3/uL (160-400); Red Blood Count 4.52 X10*6/uL (4.60-5.80); Red Cell Distribution Width 21.5 % (11.0-16.0); SCAN SMEAR FLAG 1; White Blood Count 9.6 X10*3/uL (4.8-10.8)
[2024-06-25 17:13] LABS: Iron 11 mcg/dL (45-160); Percent Iron Saturation 5 % (15-50); Total Iron Binding Capacity 205 mcg/dL (228-428); Unsaturated Iron Binding 194 ug/dL
[2024-06-25 17:22] LABS: Ferritin 7 ng/mL (20-250)
[2024-06-25 17:37] LABS: SLIDE REVIEW VERIFIED
== END 2024-06-25 12:47 | disposition home or self-care (01) ==
LOC: HO.HHCL 12:46
PROVIDERS: Visit Provider Family Medicine
DX: K52.9 Noninfective gastroenteritis and colitis, unspecified (principal); D64.9 Anemia, unspecified
CPT/HCPCS: 36415; 82728; 82746; 83540; 85025

== ENCOUNTER 2024-06-26 11:51 | Emergency (ER) | payer MEDICAID, SELFPAY ==
[2024-06-26] VITALS (8 sets, daily range): BP systolic 110–123; BP diastolic 60–80; PULSE 60–86; RESP 12–18; TEMP 37–37.1; O2SAT 98–100; BMI 25.1
--- NOTE | 2024-06-26 12:28 | ED.GENADULT ---
HPI - General Adult General Chief complaint: Recheck/Abnormal Lab/Rx Stated complaint: low blood levels-sent for transfusion Time Seen by Provider: 06/26/24 16:56 Source: patient Limitations: no limitations History of Present Illness ED Provider: Tatiana Edge PA-C HPI narrative: 28-year-old male with a history of ulcerative colitis and chronic anemia, presents with lab abnormality. Patient had routine labs drawn by primary care, he was noted to be critically anemic requiring transfusion, he was advised to come to the emergency department for assessment. Patient states he has ongoing bloody bowel movements, this is his baseline. Denies associated abdominal pain, nausea, vomiting or fever at this time. Related Data Previous Rx's ?Medication ?Instructions ?Recorded hydrocortisone 2.5 % topical cream 1 appl ME BID hemorrhoids #30 grams 06/07/22 with perineal applicator (Proctosol HC) polyethylene glycol 3350 17 238 g PO ONCE 1 day #238 grams 06/07/22 gram/dose oral powder (Miralax) Allergies Allergy/AdvReac Type Severity Reaction Status Date / Time No Known Allergies Allergy Verified 06/26/24 12:28 [No Known Allergies*] Review of Systems Review of Systems: Yes all other systems are reviewed and are negative Constitutional: Constitutional: Denies fatigue and Denies fever(s) Cardiovascular: Cardiovascular: Denies chest pain and Denies dyspnea Respiratory: Respiratory: Denies dyspnea Gastrointestinal: Gastrointestinal: Denies abdominal pain, Reports hematochezia, Reports diarrhea, Denies nausea and Denies vomiting Endocrine: Endocrine: Denies fatigue PMFSH Past Medical History Attestation statement: The following information was validated with the patient. Medical History (Updated 06/27/24 @ 00:51 by OBI Pate) Ulcerative colitis Acne Sacrococcygeal pilonidal cyst Pancreatitis Surgical History History of excision of pilonidal cyst (~05/10/22) History of endoscopy Hx of colonoscopy Family History Family History Mother Colon cancer Maternal Grandfather Adrenal cancer Other Family history normal Social History Social History Are you a primary animal caretaker supervisor to a significant other at home: No Do you presently have visiting nurse or other home services: No Alcohol intake: current Alcohol intake frequency: 3 or more drinks per day Alcohol type: wine and hard liquor Patient Tobacco Use Status: Never used Tobacco Smoked in Last 30 Days: No Use of substances other than those prescribed or required for medical reasons: No Substance Use Type: Marijuana Advance Directives: No Do you have a plan to hurt others: No Plan Physical Exam ED Vital Signs: Vital Signs - 24 hr 06/26/24 12:25 06/26/24 18:12 06/26/24 18:13 Temperature 98.6 F 98.8 F 98.8 F Pulse Rate 84 68 70 Respiratory Rate 16 16 16 Blood Pressure 114/60 115/68 115/68 Pulse Oximetry 100 98 Oxygen Delivery Method Room Air Room Air 06/26/24 18:25 06/26/24 20:40 06/26/24 21:12 Temperature 98.8 F 98.6 F Pulse Rate 66 60 60 Respiratory Rate 18 18 12 Blood Pressure 116/72 110/70 121/77 Pulse Oximetry 98 Oxygen Delivery Method Room Air 06/26/24 21:30 06/26/24 21:30 06/26/24 23:54 Temperature 98.8 F 98.8 F 98.8 F Pulse Rate 86 86 63 Respiratory Rate 12 12 18 Blood Pressure 114/64 114/64 123/80 Pulse Oximetry 100 Oxygen Delivery Method Room Air 06/27/24 00:51 06/27/24 01:02 Temperature 98.6 F 98.6 F Pulse Rate 57 57 Respiratory Rate 12 12 Blood Pressure 125/77 125/77 Pulse Oximetry 100 Oxygen Delivery Method Room Air BMI result Body Mass Index 25.1 Const Other: Alert, overall well in appearance Orientation/consciousness: patient oriented x3 Resp Effort & Inspection: normal respiratory effort Cardio Other: Normal peripheral perfusion GI Other: Abdomen is soft, nondistended nontender Skin Other: Warm dry no rash Neuro General: patient oriented x3, no focal motor deficits and CN's II-XI intact bilaterally Psych Other: Calm cooperative Course Course Course Narrative: RME: Done by OBI Burks. 28 yold male with nonspecific colitis presents to the ED for anemia and may need blood transfusion. patient states he had labs yesterday which showed his blood count was low he was informed by PCP to come to the ED. patient states also some rectal bleeding which usually with his colitis. Patient denies any abdominal pain. Repeat labs ordered Medications Administered Discontinued Medications Generic Name Dose Route Start Last Admin Trade Name Sanjuana PRN Reason Stop Dose Admin Sodium Chloride 100 mls @ 100 mls/hr 06/26/24 16:57 06/26/24 19:10 Ns IV 06/26/24 17:56 Infused ONCE ONE Infusion Sodium Chloride 100 mls @ 100 mls/hr 06/26/24 17:09 06/26/24 22:15 Ns IV 06/26/24 18:08 Infused ONCE ONE Infusion Albumin Human 100 mls @ 100 mls/hr 06/26/24 17:16 06/26/24 19:13 Kedbumin 25 % IV 06/26/24 18:15 Infused ONCE ONE Infusion Medical Decision Making Medical Decision Making [facility] Narrative: 28-year-old male with a history of ulcerative colitis and chronic anemia, presents with lab abnormality. Patient had routine labs drawn by primary care, he was noted to be critically anemic requiring transfusion, he was advised to come to the emergency department for assessment. Patient states he has ongoing bloody bowel movements, this is his baseline. Denies associated abdominal pain, nausea, vomiting or fever at this time. Problem: Known UC History: Per patient I have considered the following differential diagnoses: Ulcerative colitis flare, diverticulosis, symptomatic anemia Plan: The patient is not having any pain, he has not had progression of symptoms, this is his current baseline, he requires transfusion he can be discharged after that to have repeat CBC as an outpatient. No indication for imaging given absence of acute symptoms or fever. I have independently reviewed the following tests: Labs: Leukocytosis, anemic at 7.8 and 28, no electrolyte abnormality, albumin low at 2.8 we will give 25 gm Lab Data 06/26/24 13:37 06/26/24 13:37 Labs: Lab Results 06/26/24 Range/Units 13:37 WBC 13.0 H (4.8-10.8) X10*3/uL RBC 4.74 (4.60-5.80) X10*6/uL Hgb 7.8 L (14.0-18.0) g/dl Hct 28.1 L (42.0-52.0) % MCV 59.3 L (80.0-98.0) fL MCH 16.5 L (27.0-33.0) pg MCHC 27.8 L (31.0-36.0) g/dl RDW 21.0 H (11.0-16.0) % Plt Count 621 H (160-400) X10*3/uL MPV 8.7 L (9.4-12.4) fL Immature Gran % (Auto) 0.7 H (0.0-0.4) % Neut % (Auto) 81.9 H (45-73) % Lymph % (Auto) 8.7 L (20-40) % [place] % (Auto) 7.9 (2-11) % Eos % (Auto) 0.5 (0-4) % Baso % (Auto) 0.3 (0-2) % Lymph # (Auto) 1.1 L (1.2-4.9) X10*3/uL [place] # (Auto) 1.0 (0.1-1.2) X10*3/uL Eos # (Auto) 0.1 (0.0-0.4) X10*3/uL Baso # (Auto) 0.0 (0.0-0.2) X10*3/uL Abs Immat Gran (auto) 0.09 H (0.00-0.03) X10*3/uL Absolute Neuts (auto) 10.6 H (2.0-8.3) x10*3/uL Absolute Nucleated RBC 0.000 (0.0-0.012) X10*3/uL Nucleated RBC % (auto) 0.0 (0.0-0.2) /100WBC PT 14.3 H (10.9-12.4) SEC INR 1.2 H (0.9-1.1) APTT 28.1 (26.0-36.8) SEC Sodium 138 (135-145) mmol/L Potassium 3.8 (3.3-5.1) mmol/L Chloride 103 (96-108) mmol/L Carbon Dioxide 29 (22-29) mmol/L Anion Gap 10 L (12-20) BUN 10 (9-16) mg/dL Creatinine 0.84 (0.5-1.4) mg/dL Estim Creat Clear Calc 125.5 Estimated GFR > 60 Random Glucose 167 H (60-115) mg/dL Calcium 8.0 L D (8.4-10.2) mg/dL Total Bilirubin 0.1 (0.0-1.0) mg/dL AST 21 (5-37) U/L ALT 9 (0-40) U/L Alkaline Phosphatase 41 (39-117) U/L Total Protein 6.9 (6.5-8.0) g/dL Albumin 2.8 L (3.5-5.0) g/dL Blood Type O Positive Antibody Screen NEGATIVE Crossmatch See Detail Discharge Plan Discharge Clinical Impression: Anemia Patient Disposition: Home, Self-Care Additional Instructions: You received 2 units of blood. You need to follow up with either your primary care or excelsior machine operator for repeat labs, to assess your blood counts. I would call tomorrow to make an appointment. You should have your blood counts assessed within a week. Prescriptions: No Action polyethylene glycol 3350 [Miralax] 17 gram/dose powder 238 g PO ONCE 1 Days Qty: 238 0RF hydrocortisone [Proctosol HC] 2.5 % cream with perineal applicator 1 appl ME BID Qty: 30 3RF Interventions: ED Discharge Assessment Last Done: 06/27/24 01:02 Discharge Date/Time: 06/27/24 01:06 Print Language: German
[2024-06-26 13:45] LABS: MANUAL DIFF FLAG NO
[2024-06-26 13:46] LABS: Basophils Percent Auto 0.3 % (0-2); Eosinophils Absolute Auto 0.1 X10*3/uL (0.0-0.4); Eosinophils Percent Auto 0.5 % (0-4); Hematocrit 28.1 % (42.0-52.0); Hemoglobin 7.8 g/dl (14.0-18.0); Imm Gran Abs Auto 0.09 X10*3/uL (0.00-0.03); Imm Gran Pct Auto 0.7 % (0.0-0.4); Lymphocytes Absolute Auto 1.1 X10*3/uL (1.2-4.9); Lymphocytes Percent Auto 8.7 % (20-40); Mean Corpuscular HGB Conc 27.8 g/dl (31.0-36.0); Mean Corpuscular Hemoglobin 16.5 pg (27.0-33.0); Mean Platelet Volume 8.7 fL (9.4-12.4); Monocytes Percent Auto 7.9 % (2-11); Neutrophils Absolute Auto 10.6 x10*3/uL (2.0-8.3); Neutrophils Percent Auto 81.9 % (45-73); Platelet Count 621 X10*3/uL (160-400); Red Blood Count 4.74 X10*6/uL (4.60-5.80)
[2024-06-26 13:51] LABS: Mean Corpuscular Volume 59.3 fL (80.0-98.0)
[2024-06-26 13:53] LABS: INTERNATIONAL NORM RATIO 1.2 (0.9-1.1); Prothrombin Time 14.3 SEC (10.9-12.4)
[2024-06-26 13:56] LABS: Partial Thromboplastin Time 28.1 SEC (26.0-36.8)
[2024-06-26 14:05] LABS: Alanine Aminotransferase 9 U/L (0-40); Albumin Level 2.8 g/dL (3.5-5.0); Alkaline Phosphatase 41 U/L (39-117); Anion Gap 10 (12-20); Aspartate Amino Transferase 21 U/L (5-37); Bilirubin Total 0.1 mg/dL (0.0-1.0); Blood Urea Nitrogen 10 mg/dL (9-16); Carbon Dioxide 29 mmol/L (22-29); Chloride 103 mmol/L (96-108); Creatinine Clr Calc Pharmacy 125.5; Estimated Glomerular Filt Rate > 60; Glucose Random 167 mg/dL (60-115); Potassium 3.8 mmol/L (3.3-5.1); Sodium 138 mmol/L (135-145); Total Protein 6.9 g/dL (6.5-8.0)
[2024-06-26] MEDS: Albumin Human 25 % 100 ML IV (17:48)
--- NOTE | 2024-06-26 19:11 | PC.NURSE ---
This RN assumed pt care @ 1900. At 1910 this RN entered pts room and noted abx was complete. Pt a&ox4, no signs of distress. Pt denies pain at this time. Plan of care ongoing.
--- NOTE | 2024-06-26 21:33 | PC.NURSE ---
Pt a&ox4, no signs of distress Pt denies pain Vitals stable Pt medicated per tar Plan of care ongoing.
[2024-06-27 00:51] VITALS: BP 125/77; PULSE 57; RESP 12; TEMP 37
[2024-06-27 01:02] VITALS: BP 125/77; PULSE 57; RESP 12; TEMP 37; O2SAT 100
== END 2024-06-27 01:06 | disposition home or self-care (01) ==
PROVIDERS: Physician Assistant; Emergency Provider Internal Medicine; PCP Nurse Practitioner Primary Care
DX: D64.9 Anemia, unspecified (principal)
CPT/HCPCS: 36415; 36430; 80053; 85025; 85610; 85730; 86850; 86900; 86901; 86923; 96361; 96365; 99284; 99285; P9016; P9047